=== PATIENT | male | born 1975 | race Native Hawaiian/Other Pacific Islander ===

== ENCOUNTER 2020-03-23 15:46 | Outpatient (CLI) | payer BC, OTHER | END 2020-03-23 20:43 | disposition home or self-care (01) | LOC: LAB 15:46 | DX: Z20.828 Contact with and (suspected) exposure to other viral communicable diseases (principal) | CPT/HCPCS: 87635; U0002 ==

== ENCOUNTER 2020-04-18 00:04 | Emergency (ER) | payer BC ==
[~2020-04-18] VITALS: Ht 175.3 cm; Wt 117.9 kg
[2020-04-18 01:01] LABS: PLATELET COUNT 148 K/uL (142-355)
[2020-04-18 01:16] LABS: POTASSIUM 4.1 mmol/L (3.6-5.2); SODIUM 136 mmol/L (136-145)
[2020-04-18 03:53] VITALS: BP 142/67; TEMP 98.6
== END 2020-04-18 04:00 | disposition short-term general hospital (02) ==
LOC: ED 00:04
PROVIDERS: Family Medicine
DX: R00.1 Bradycardia, unspecified (principal); I44.2 Atrioventricular block, complete
CPT/HCPCS: 36415; 80053; 82553; 83605; 83880; 84484; 85027; 93005; 96374; 96375; 96376; 99285; J0461; J2930

== ENCOUNTER 2020-09-30 21:02 | Emergency (ER) | payer OTHER ==
[~2020-09-30] VITALS: Ht 175.3 cm; Wt 117.9 kg
[2020-09-30 21:02] VITALS: TEMP 98
[2020-09-30 21:32] LABS: PLATELET COUNT 187 K/uL (142-355)
[2020-09-30 21:39] LABS: PARTIAL THROMBOPLASTIN TIME 19.9 SECONDS (24.5-33.6)
[2020-09-30 22:59] VITALS: BP 131/81
== END 2020-09-30 22:59 | disposition short-term general hospital (02) ==
LOC: ED 21:08
PROVIDERS: Emergency Medicine Emergency Medical Services
PROC: 0T9B70Z Drainage of Bladder with Drainage Device, Via Natural or Artificial Opening (ICD-10-PCS; principal; 2020-09-30)
DX: S02.2XXA Fracture of nasal bones, initial encounter for closed fracture (principal); S02.85XA Fracture of orbit, unspecified, initial encounter for closed fracture; S02.401A Maxillary fracture, unspecified side, initial encounter for closed fracture; S02.402A Zygomatic fracture, unspecified side, initial encounter for closed fracture; S02.19XA Other fracture of base of skull, initial encounter for closed fracture; G93.89 Other specified disorders of brain; Z11.59 Encounter for screening for other viral diseases; S01.81XA Laceration without foreign body of other part of head, initial encounter; V86.55XA Driver of 3- or 4- wheeled all-terrain vehicle (ATV) injured in nontraffic accident, initial encounter; Y92.89 Other specified places as the place of occurrence of the external cause
CPT/HCPCS: 36415; 51702; 80053; 80320; 85027; 85610; 85730; 86850; 86900; 86901; 87635; 96361; 96365; 96375; 99285; J0696; J1170; U0003

== ENCOUNTER 2021-12-06 12:15 | Emergency (ER) | payer OTHER ==
[~2021-12-06] VITALS: Ht 175.3 cm; Wt 104.3 kg
[2021-12-06 12:25] VITALS: TEMP 97.2
[2021-12-06 13:19] LABS: PLATELET COUNT 179 K/uL (142-355)
[2021-12-06 13:30] LABS: POTASSIUM 4.4 mmol/L (3.6-5.2)
[2021-12-06 14:23] VITALS: BP 142/89
== END 2021-12-06 14:25 | disposition home or self-care (01) ==
LOC: ED 12:15
PROVIDERS: Emergency Medicine
DX: L50.8 Other urticaria (principal); J44.9 Chronic obstructive pulmonary disease, unspecified; R06.2 Wheezing; E11.65 Type 2 diabetes mellitus with hyperglycemia; F17.210 Nicotine dependence, cigarettes, uncomplicated
CPT/HCPCS: 80048; 85027; 94664; 96374; 99284; J2920

== ENCOUNTER 2021-12-20 02:08 | Emergency (ER) | payer OTHER ==
[~2021-12-20] VITALS: Ht 175.3 cm; Wt 104.3 kg
[2021-12-20 02:08] VITALS: BP 0/0; TEMP 96.7
[2021-12-20 02:43] LABS: POTASSIUM 4.1 mmol/L (3.6-5.2)
[2021-12-20 02:44] LABS: PLATELET COUNT 143 K/uL (142-355)
[2021-12-20 03:38] LABS: PARTIAL THROMBOPLASTIN TIME 29.3 SECONDS (24.5-33.6)
== END 2021-12-20 04:24 | disposition still patient (30) ==
LOC: ED 02:08
PROVIDERS: Hospitalist
PROC: 5A1221J Performance of Cardiac Output, Continuous, Automated (ICD-10-PCS; principal; 2021-12-20)
DX: I24.9 Acute ischemic heart disease, unspecified (principal); I46.9 Cardiac arrest, cause unspecified; I26.99 Other pulmonary embolism without acute cor pulmonale
CPT/HCPCS: 36415; 80053; 82550; 83880; 84484; 85027; 85379; 85610; 85730; 96360; 96375; 96376; 99285; J0171; J1815; J2310; J3490; J7060